=== PATIENT | male | born 1955 | race African-American/Black ===

== ENCOUNTER 2021-11-25 14:32 | Emergency (ER) | payer OTHER ==
[2021-11-25] MEDS ORDERED: Tetracaine 0.5% PF 4 ML BOT ONE (14:47)
[2021-11-25] MEDS ORDERED: Fluorescein Opthalmic Strip ONE (14:47)
[2021-11-25 15:25] LABS: Bilirubin Negative (Negative); Blood, Urine Negative (Negative); Clarity Clear (Clear); Glucose, Urine (Dipstick) Negative (Negative); Ketone, Urine Trace mg/dL (Negative); Leukocyte Negative (Negative); Nitrite Negative (Negative); Protein, Urine (Dipstick) Negative (Neg-Trace); Specific Gravity, Urine 1.015 (1.005-1.030); pH, Urine 5.5 (5.0-9.0)
== END 2021-11-25 16:06 | disposition home or self-care (01) ==
LOC: BURERS 14:32
DX: G50.0 Trigeminal neuralgia (principal); F17.200 Nicotine dependence, unspecified, uncomplicated; R51.9 Headache, unspecified
CPT/HCPCS: 81003; 87086; 99283